=== PATIENT | female | born 1975 | race Caucasian/White ===

== ENCOUNTER 2020-04-04 08:14 | Observation (INO) | payer OTHER ==
[~2020-04-04] VITALS: Ht 154.9 cm; Wt 52.6 kg
--- NOTE | ~2020-04-04 | O ---
[facility] [place] [address] OPERATIVE REPORT Name: AARON BOBRIAN Kenneth Room #: 150-11 [facility]..#: [id number] Admission: 04/04/20 Attend Phys: Selena Banks, Discharge: Date of : 77 Report #: [id number] THIS REPORT FOR: cc: Cely Alvarez Christine L. DO Deardorff,Selena Way MD ~ DATE OF SERVICE: 04/04/2020 PREOPERATIVE DIAGNOSIS: Right index finger paronychia recalcitrant to IV antibiotics. POSTOPERATIVE DIAGNOSIS: Right index finger paronychia recalcitrant to IV antibiotics. PROCEDURE PERFORMED: Right index finger incision and debridement with removal of the nail. SURGEON: Selena Banks MD ANESTHESIA: General mask anesthesia. ESTIMATED BLOOD LOSS: Minimal. TOURNIQUET TIME: 11 minutes. COMPLICATIONS: None. CONDITION: Stable. DISPOSITION: Recovery room. INDICATIONS: The patient is a 44-year-old female with the above-mentioned diagnosis. She elects for operative treatment. She has had oral and a few days of IV antibiotics in the hospital at [facility]. She has had persistent right index finger pain and swelling with significant lateral nail fold swelling and abnormality of the lateral nail. An MRI did not show any evidence of osteomyelitis or septic joint. The plan was for incision and debridement with nail removal. The risks, benefits, alternatives, and complications were discussed including, but not limited to, inability to resolve the infection necessitating more surgery, infection, damage to vessels or nerves, wound healing problems, and nail deformity. Informed consent was obtained. The correct extremity was identified and labeled by myself after verbal confirmation of the patient as well as visual confirmation and signed informed consent. DESCRIPTION OF PROCEDURE: The patient was brought back to the operating room [address] [address] OPERATIVE REPORT Name: BRIAN EM Room #: 150-11 [facility]#: [id number] Admission: 04/04/20 Attend Phys: Selena Banks, Discharge: Date of : 77 Report #: [id number] and placed on the operating table in the supine position. Right upper extremity was sterilely prepped and draped in the usual fashion. Final timeout was taken to verify correct patient, operative procedure, operative site, all concurred. The arm was elevated and exsanguinated proximal to the wrist and the tourniquet was inflated. Next, the nail was removed. The lateral area of the nail was nonadherent. There was an eschar at the nail bed. No purulent fluid. Next, a lateral incision was made over the area of most edema and erythema. Dissection was carried down through subcutaneous tissue with tenotomy scissors. Fluid was obtained, but no purulent fluid. Tissue and a swab was sent to microbiology. The area was then thoroughly irrigated with antibiotic saline using Jelco. Next, a portion of the indicator foil was placed in the nail fold and sutured with 4-0 nylon suture. This is in order to facilitate recurrent nail growth. The wound was not closed directly. It was dressed with sterile gauze. The tourniquet was removed. The fingers were pink and brisk capillary refill at the conclusion of the case after deflation of tourniquet and after application of dressing. All sponge and needle counts were correct. The patient was transferred to postoperative recovery room in stable condition. She did then receive 1 gram of vancomycin after the tourniquet was deflated. By: [id number] Selena Banks MD /nt
[~2020-04-04 08:14] MED LIST: IBUPROFEN200 M1 PO; POTASSIUM GLUCO99 M2 PO; PROAIR HFA8.5 GM INH; PROBIOTIC1 EAC7 PO; ZYRTEC10 M5 PO
[2020-04-04 09:50] VITALS: BP 96/48
[2020-04-05 16:12] VITALS: BP 96/48
--- NOTE | 2020-04-05 16:16 | NUR ---
ASSESSMENT: CM RECEIVED A CONSULT THIS AM 04/05 FOR A PATIENT THAT DISCHARGE LAST NIGHT 04/04 STATING TO ARRANGE FOR PATIENT TO GET PICC LINE AND OUTPT ANBX CEFAZOLIN 1GM IV Q 8 HRS. PT HAD OUTPATIENT SURGERY YESTERDAY AND WENT TO [facility]S IN EVENING AND RECEIVED DAPTO PRIOR TO DISCHARGE AND WAS SENT HOME. ANISH REACHED OUT TO PATIENT THIS AM WHO REPORTS SHE WAS DISCHARGED AND TOLD SHE CAN COME IN TODAY TO GET A PICC LINE AND FIRST DOSE OF ANBX AND IT COULD BE ARRANGED FOR HER TO RECEIVE AT HOME. CM/KATHLEEN REACHED OUT TO OUTPATIENT INFUSION AND HAVE SCHEDULED TIME OF 2PM FOR PATIENT TO COME IN AND GET PICC LINE AND FIRST DOSE OF ANBX. PT IS A WORK COMP CASE. ANISH REACHED OUT TO JANUSZ [facility] TO SEE WHO CM CAN USE FOR INFUSION. SHE REPORTS SHE IS OK WITH OUTPATIENT INFUSION BE ARRANGED WITH ANYONE AND WILL SPEAK TO WHOEVER. CM REACHED OUT TO [facility] AND THEY SPOKE WITH JANUSZ AND CAN PROVIDE ANBX AND SUPPLIES TO PATIENT. 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 PT HAS NO PREFERENCE OF AGENCY FOR PICC LINE MANAGEMENT. CM NOTIFIED [facility] AND THAT IT IS A WORK COMP CASE AND PROVIDED THE CONTACT INFORMATION. THEY CAN ACCEPT PT AND AWAITING FINAL ORDERS. CM FAXED DISCHARGE PAPERWORK TO [facility].
--- NOTE | 2020-04-05 17:53 | HC ---
[facility] [place] [address] CONSULTATION Name: AARON BOBRIAN Room #: 443-P [facility] Deal#: [id number] Admission: 04/04/20 Attend Phys: Selena Banks, Discharge: 04/04/20 Date of : 77 Report #: [id number] THIS REPORT FOR: cc: Cely Alvarez Christine L. DO Geha,Neel Lindo MD ~ DATE OF SERVICE: 04/04/2020 INFECTIOUS DISEASE CONSULTATION REASON FOR CONSULTATION: I was asked to evaluate concerning right second finger paronychia, failing previous inpatient and outpatient therapy. HISTORY OF PRESENT ILLNESS: The patient is a 44-year-old who suffered a right second finger nail injury while at work, picking up a box that slipped and pulled her nail back to the nail bed, which then extended up to the medial aspect of her nail bed attachment. She had a significant amount of bleeding from this. She stated it bled on and off for 3 days. This was on, which she believes, was 03/02/2020. She continued to work with a bandage, was in no significant pain unless she would pump it. On 03/11/2020, she presented to [facility] Room where she had incision and drainage procedure done in the ER. No culture data was obtained as far as I could find. I did make a call to the laboratory for these reports. She was given Bactrim, but did not improve and returned on 03/15/2020 where she had increased swelling to the nail bed as well as soft tissue extension of finger and cellulitis involving the hand and forearm. It sounds like she may have had some lymphangitis as well. She received 5 days of IV therapy and discharged on doxycycline. Blood cultures from that admission were negative. On 03/17/2020, she had a swab of the wound, which revealed methicillin-susceptible Staph aureus. Although the cellulitis improved, she still had pain and tenderness involving the distal finger. Wound failed to heal. She was seen by Dr. Banks on 04/02/2020. MRI scan was performed on 04/03/2020 which revealed distal tuft contusion or reactive edema. Impression was that there was no significant osteomyelitis identified. She was taken to the operating room today for debridement and resection of the nail. This went without complication. Discussed the case with Dr. Banks postoperatively and noted that she did not have to go down and scrape the bone or enter the joint. She was happy with her debridement and dressed the finger. She did receive vancomycin perioperatively. The patient has had no fever, chills or sweats. No GI or complaints. REVIEW OF SYSTEMS: A 10-point review of system was otherwise unremarkable. The patient does smoke cigarettes on a daily basis. PAST MEDICAL HISTORY: Anxiety, asthma, overactive thyroid, hypotension episodes, right breast lumpectomy for benign disease, tubal ligation, [address] [address] CONSULTATION Name: BRIAN EM Room #: 443-P [facility] Deal#: [id number] Admission: 04/04/20 Attend Phys: Selena Banks, Discharge: 04/04/20 Date of : 77 Report #: [id number] arthroscopy right shoulder. ALLERGIES: BAND AIDS, MORPHINE, HYDROCODONE, ADHESIVE TAPE. MEDICATIONS: As noted on her MAR including vancomycin that was given earlier today. She takes p.r.n. ibuprofen and antihistamines. FAMILY HISTORY: Negative for vascular disease. SOCIAL HISTORY: She has a son that lives with her. She is a smoker of cigarettes. No significant alcohol or other drug use noted. PHYSICAL EXAMINATION: VITAL SIGNS: Afebrile and hemodynamically stable. GENERAL: Alert and cooperative. She was anxious and desired to leave the hospital this evening. EYES: Without scleral icterus. MOUTH: Without mucositis. NECK: Supple. LUNGS: Clear. HEART: Regular, without murmur, gallop or rub. EXTREMITIES: Right second finger was in surgical wrap. The mid and proximal portion of her finger was without erythema or swelling. She had full range of motion in the MCP joint. Pulses in the wrist were within normal limits. Sensation in the fingers 1, 3, 4 and 5 to fine touch was within normal limits. Capillary refill within normal limits. No axillary adenopathy. LABORATORY STUDIES: Coronavirus negative screening test as well as negative beta hCG. Review of outside cultures as noted above. IMPRESSION: 1. A 44-year-old with paronychia due to methicillin-susceptible Staph aureus. This has failed outpatient debridement and IV antibiotic therapy. I suspect the retained nail is the nidus of her ongoing infection. 2. Tobacco use. 3. Anxiety. RECOMMENDATIONS: We will continue IV antibiotic therapy with cefazolin 1 gram IV q. 8 hours in the outpatient setting until this infection improves and there is soft tissue healing. We will obtain baseline laboratory studies and follow [facility] [address] [place] [address] CONSULTATION Name: BRIAN EM Room #: 443-P [facility] [place]#: [id number] Admission: 04/04/20 Attend Phys: Selena Banks, Discharge: 04/04/20 Date of : 77 Report #: [id number] in the outpatient clinic in 1 week. Case was discussed with the patient, her significant other, nursing staff and Dr. Banks. <ELECTRONICALLY SIGNED> By: Neel Chatman MD 04/05/20 [id number] Neel Chatman MD /nt
== END 2020-04-04 23:36 | disposition home or self-care (01) ==
LOC: OR → TBA 08:16 → OR 08:42 → 4S 17:09
PROVIDERS: ADMIT Specialist; ATTEND Orthopaedic Surgery Hand Surgery
DX: L03.011 Cellulitis of right finger (principal); J45.909 Unspecified asthma, uncomplicated; F41.9 Anxiety disorder, unspecified; F17.210 Nicotine dependence, cigarettes, uncomplicated; Z79.899 Other long term (current) drug therapy; Z20.822 Contact with and (suspected) exposure to COVID-19
CPT/HCPCS: 50010; 50101; 50386; 57006; 57091; 57178; 62110; 62900; 70005

== ENCOUNTER → 2020-04-05 | Outpatient (CLI) | payer OTHER ==
--- NOTE | 2020-04-05 07:35 | NUR ---
PATIENT HERE UNTIL ID DOCTOR SEES. PATIENT ALERT AND ORIENTED X4. DRESSING ON R HAND INTACT. C/O PAIN X1, MED GIVEN. RECIEVED I DOSE OF ANTIBIOTIC THEN WENT HOME. LEFT AT 2335.
--- NOTE | 2020-04-05 15:12 | NUR ---
VAT CONSULTED FOR PICC LINE. LEFT UE BASILIC PICC INSERTED, 46 TRIMMED AND 1CM EXTERNAL. TIP LOCATION BY 3CG. RELEASED FOR USE, PER HOSPITAL POLICY.
[2020-04-05 15:30] VITALS: BP 94/46
[2020-04-05 15:37] LABS: HEMATOCRIT 30.6 % (37.0-47.0); HEMOGLOBIN 10.2 gm/dL (12.0-15.0); MCH 28.7 pg (26.0-34.0); MCHC 33.1 g/dL (28.0-37.0); MCV 86.6 fL (80.0-100.0); RBC 3.54 mil/uL (4.20-5.00); RDW 16.1 % (10.5-14.5); WBC 10.4 thou/uL (4.0-11.0)
[2020-04-05 15:49] LABS: ALBUMIN 3.3 g/dL (3.4-5.0); CALCIUM 8.3 mg/dL (8.5-10.1); CREATININE 0.7 mg/dL (0.6-1.0); POTASSIUM 3.5 mmol/L (3.5-5.1); TOTAL BILIRUBIN 0.3 mg/dL (0.2-1.0); TOTAL PROTEIN 6.3 g/dL (6.4-8.2)
--- NOTE | 2020-04-05 16:24 | NUR ---
IN FOR PICC LINE PLACEMENT AND 1ST DOSE OF CEFAZOLIN FOR RT INDEX FINGER INFECTION, S/P DEBRIDEMENT 04/04/20. VASCULAR ACCESS TEAM PLACED SINGLE LUMEN PICC IN MERI BASILIC AND CONFIRMED CORRECT PLACEMENT. [facility] FROM PICC LINE WITHOUT DIFFICULTY. 1ST DOSE CEFAZOLIN GIVEN AND TOLERATED WELL. PLAN IS TO DO HOME INFUSIONS. HH NURSE CAME AND GAVE PATIENT INSTRUCTIONS ON HOW TO ADMINISTER MEDICATION. DISMISSED IN GOOD CONDITION.
== END | disposition home or self-care (01) ==
LOC: MRI
PROVIDERS: ATTEND Specialist
DX: Z45.2 Encounter for adjustment and management of vascular access device (principal); J45.909 Unspecified asthma, uncomplicated; F41.9 Anxiety disorder, unspecified; F17.210 Nicotine dependence, cigarettes, uncomplicated; Z98.890 Other specified postprocedural states; Z79.899 Other long term (current) drug therapy; Z98.51 Tubal ligation status; Z88.8 Allergy status to other drugs, medicaments and biological substances
CPT/HCPCS: 27000; 95000